=== PATIENT | female | born 1940 | race Caucasian/White ===

== ENCOUNTER 2017-12-30 09:05 | Emergency (ER) | payer OTHER ==
[~2017-12-30] VITALS: Ht 175.3 cm; Wt 78.6 kg
[2017-12-30 09:07] VITALS: Ht 175.3 cm; Wt 78.6 kg
[2017-12-30] MEDS ORDERED: COZAAR50 MG (09:09)
[2017-12-30] MEDS ORDERED: BAYER CHEWABLE81 MG PO (09:10)
[2017-12-30] MEDS ORDERED: CLARITIN 10 MG10 MG (09:10)
[2017-12-30] MEDS ORDERED: LIPITOR20 MG PO (09:10)
[2017-12-30] MEDS ORDERED: TIROSINT13 MCG PO (09:11)
[2017-12-30] MEDS ORDERED: ANTIVERT12.5 MG PO (09:59)
[2017-12-30 10:53] VITALS: BP 150/78
== END 2017-12-30 10:54 | disposition home or self-care (01) ==
LOC: D.ER 09:05
DX: H81.10 Benign paroxysmal vertigo, unspecified ear (principal); I10 Essential (primary) hypertension; F17.200 Nicotine dependence, unspecified, uncomplicated

== ENCOUNTER 2018-07-27 08:09 | Inpatient (IN) | payer OTHER ==
[~2018-07-27] VITALS: Ht 175.3 cm; Wt 73.5 kg
[2018-07-27] VITALS (10 sets, daily range): BP systolic 111–145; BP diastolic 48–67; BMI 23.9
[~2018-07-27 08:09] MED LIST: ANTIVERT12.5 MG PO; BAYER CHEWABLE81 MG PO; CLARITIN 10 MG10 MG; COZAAR50 MG; LIPITOR20 MG PO; TIROSINT13 MCG PO
[2018-07-27 08:52] LABS: HEMATOCRIT 21.9 % (36.0-48.0); HEMOGLOBIN 7.6 g/dL (12-16); MCH 31.3 pg (26.0-34.0); MCHC 34.7 g/dL (31.0-37.0); MCV 90.1 fL (80.0-100.0); MEAN PLATELET VOLUME 10.6 fL (7.4-10.4); RBC 2.43 10x6/uL (4.00-5.40); RDW 13.3 % (11.5-14.5)
[2018-07-27 08:54] LABS: INR 1.25 (0.85-1.17); PROTIME 15.1 SECONDS (11.6-15.0)
[2018-07-27 08:55] LABS: APTT 35.5 SECONDS (22.8-39.4)
[2018-07-27 08:59] LABS: ALBUMIN 2.6 g/dL (3.4-5.0); ALKALINE PHOSPHATASE 67 U/L (46-116); ALT (SGPT) 12 U/L (10-68); BILIRUBIN - TOTAL 0.39 mg/dL (0.2-1.3); CALC OSMOLALITY 268 mosm/kg (275-300); CALCIUM 8.5 mg/dL (8.5-10.1); CHLORIDE - SERUM 99 mmol/L (98-107); CREATININE - SERUM 1.5 mg/dL (0.6-1.3); POTASSIUM - SERUM 4.1 mmol/L (3.5-5.1); PROTEIN - SERUM 6.3 g/dL (6.4-8.2); SODIUM 130 mmol/L (136-145); UREA NITROGEN 33 mg/dL (7-18); eGFR NON AFRICAN AMERICAN 36 mL/min (90-120)
[2018-07-27 09:03] LABS: GLUCOSE 115 mg/dL (74-106)
[2018-07-27 09:10] LABS: CKMB 0.9 U/L (0.0-3.6); CREATINE KINASE 28 UL (21-215); TROPONIN-I 0.019 ng/mL (0.000-0.060)
--- NOTE | 2018-07-27 09:10 | NUR ---
PT REFUSED ORDERED TYLENOL. PT STATES " I CAN NOT TAKE TYLENOL WITH MY CHEMO."
--- NOTE | 2018-07-27 09:14 | NUR ---
WATER PROVIDED TO PT PER HER REQUEST. PT STATES THAT SHE "WOULD LIKE A BLANKET." PT'S TEMP AT TRIAGE 100.1 F. SHEET PROVIDED TO PT, AND PT EDUCATED ABOUT NOT RECEIVING BLANKET WHEN SHE IS FEBRILE.
[2018-07-27 09:26] LABS: PLATELET COUNT 23 10x3/uL (130-400); WBC 0.1 10x3/uL (4.8-10.8)
[2018-07-27 10:33] LABS: LYMPHOCYTES 72 % (15-50); MONOCYTES 24 % (2-11); NEUTROPHILS 4 % (40-80); PLATELET ESTIMATE DECREASED
[2018-07-27 10:34] LABS: ANISOCYTOSIS OCC; ROULEAUX OCC
[2018-07-27 10:35] LABS: APPEARANCE TURBID (CLEAR); BILIRUBIN NEGATIVE (NEGATIVE); COLOR YELLOW (YELLOW); GLUCOSE NEGATIVE (NEGATIVE); KETONE NEGATIVE (NEGATIVE); NITRITE POSITIVE (NEGATIVE); PROTEIN 1+ mg/dL (NEGATIVE); SPECIFIC GRAVITY 1.015 (1.005-1.020); UROBILINOGEN NORMAL (NORMAL)
[2018-07-27 10:37] LABS: AMORPHOUS SEDIMENT <1+ /lpf (NONE SEEN); BACTERIA MANY /hpf (NONE SEEN); EPITHELIAL CELLS OCC /hpf (0-5); GRANULAR CAST OCC /lpf (NONE SEEN); MUCUS <1+ /lpf (NONE SEEN); WHITE CELLS - URINE OCC /hpf (0-5)
--- NOTE | 2018-07-27 11:00 | NUR ---
PT TEMPERATURE 98.6 F ORALLY, BLANKET PROVIDED FOR COMFORT.
--- NOTE | 2018-07-27 11:59 | NUR ---
PT RETURNED TO ED AT THIS TIME VIA STRETCHER FOLLOWING ORDERED CT SCAN. NO SIGNS OF DISTRESS NOTED UPON RETURN.
--- NOTE | 2018-07-27 12:55 | NUR ---
PT OBSERVED LYING IN BED WITH EYES CLOSED, BREATHS EVEN AND UNLABORED. WILL CONTINUE TO MONITOR.
--- NOTE | 2018-07-27 17:34 | NUR ---
PT ARRIVED TO UNIT VIA STRETCHER ACCOMPANIED BY HOSPITAL STAFF. PT ORIENTED TO ROOM. ASSESSMENTS COMPLETE. PT DENIES NEEDS. WCTM.
--- NOTE | 2018-07-27 17:40 | MORECARE ---
CASE MANAGEMENT DISCHARGE SUMMARY PATIENT: BELA HOLDER UNIT: [id number] ADM DATE: 07/27/18 AGE: 78 : 41 SEX: F ROOM/BED: D.1211 AUTHOR: JOAN SPAULDING PHYSICIAN: REFERRING PHYSICIAN: TERRI MAYS MD DATE OF SERVICE: 07/27/18 Discharge Plan Patient Name: BELA HOLDER [facility] [facility] 1940 Planned Disposition: Home Anticipated Discharge Date: Discharge Date: Expected LOS: Initial Reviewer: [email or web address] Initial Review Date: 07/27/2018 Generated: 07/27/18 6:39 pm Patient Name: BELA HOLDER Page [id number] at 1740 All edits/amendments must be made on the electronic document DICTATION DATE: 07/27/181738 PATIENT APPOINTMENT COORDINATOR: DELBERT 07/27/181738 RPT#: [id number] DC DATE: STATUS: ADM IN [facility] [address] [place] [address] END OF REPORT
--- NOTE | 2018-07-27 17:46 | MORECARE ---
CASE MANAGEMENT DISCHARGE SUMMARY PATIENT: BELA HOLDER UNIT: [id number] ADM DATE: 07/27/18 AGE: 78 : 41 SEX: F ROOM/BED: D.1211 AUTHOR: JASSON,DOC PHYSICIAN: REFERRING PHYSICIAN: TERRI MAYS MD DATE OF SERVICE: 07/27/18 Discharge Plan Patient Name: BELA HOLDER Facility: [facility]:[place] : 1940 Planned Disposition: Home Anticipated Discharge Date: Discharge Date: Expected LOS: Initial Reviewer: [email or web address] Initial Review Date: 07/27/2018 Generated: 07/27/18 6:46 pm DCP- Discharge Planning Updated by [email or web address]: Julienne Hodge on 07/27/18 4:[address] Patient Name: BELA HOLDER Admission Status: ER Accout number: [id number] Admission Date: 07-27-2018 : 1940 Admission Diagnosis: Attending: TERRI MAYS Current LOS: 1 Anticipated DC Date: Planned Disposition: Home Primary Insurance: [employer] Discharge Planning Comments: CM met with patient to complete initial dc planning assessment. CM educated patient on the CM role and verbal consent given by patient to complete assessment. CM verified patient's address, phone number, and emergency contact phone numbers. Patient lives at home alone and reports she is independent in her care at home. At discharge patient plans to return home alone and feels this is a safe discharge. CM discussed availability of home health, rehab services, and medical equipment. Patient reports she has a lady that comes once a month to help her with house work. Patient denied known discharge needs at this time. She is currently on chemo every 2 weeks and has 4 treatments left. Patient reports one of her friends will transport her home at time of discharge. CM will continue to follow and will assist as needed with dc plans/needs. Splitting Machine Operator: Julienne Hodge RN, [facility] DCPIA - Discharge Planning Initial Assessment Updated by [email or web address]: Julienne Hodge on 07/27/18 5:43 pm * Is the patient Alert and Oriented? Yes * How many steps to enter\exit or inside your home? * PCP Dr. Hernandez @ [facility] - oncology * Pharmacy [facility] by the [facility] * Preadmission Environment Home Alone * ADLs Independent * Equipment None * List name and contact numbers for known caregivers / representatives who currently or will assist patient after discharge: Carol Ann Ng - friend - [phone] Denice Gudino - neighbor/friend - [phone] * Verbal permission to speak to the caregivers and representatives has been obtained from the patient. Yes * Community resources currently utilized None * Additional services required to return to the preadmission environment? No * Can the patient safely return to the preadmission environment? Yes * Has this patient been hospitalized within the prior 30 days at any hospital? No Last DP export: 07/27/18 4:40 p Patient Name: BELA HOLDER Page [id number] at 1746 All edits/amendments must be made on the electronic document DICTATION DATE: 07/27/181745 CHART WRITER: DELBERT 07/27/181745 RPT#: [id number] DC DATE: STATUS: ADM IN [facility] [address] [place] [address] END OF REPORT
--- NOTE | 2018-07-27 19:24 | NUR ---
PT IN BED. DENIES NEEDS AT THIS TIME.
[2018-07-28 01:15] VITALS: BP 90/33
[2018-07-28 06:22] VITALS: BP 103/68
[2018-07-28 07:11] LABS: ANION GAP 19.1 mmol/L (8-16); CALCIUM 8.5 mg/dL (8.5-10.1); CARBON DIOXIDE 16.5 mmol/L (21.0-32.0); MAGNESIUM - SERUM 1.5 mg/dL (1.8-2.4); PHOSPHOROUS 5.2 mg/dL (2.5-4.9); POTASSIUM - SERUM 3.6 mmol/L (3.5-5.1)
[2018-07-28 07:15] LABS: CREATININE - SERUM 1.9 mg/dL (0.6-1.3)
[2018-07-28 07:30] LABS: BASOPHILS 5.9 % (0-2); EOSINOPHILS 0 % (0-7); LYMPHOCYTES 17.6 % (15-50); MCH 30.9 pg (26.0-34.0); MCHC 34.5 g/dL (31.0-37.0); MCV 89.5 fL (80.0-100.0); MEAN PLATELET VOLUME 11.5 fL (7.4-10.4); MONOCYTES 58.8 % (2-11); NEUTROPHILS 17.7 % (40-80); RDW 13.4 % (11.5-14.5)
[2018-07-28 07:34] LABS: WBC 0.2 10x3/uL (4.8-10.8)
[2018-07-28 07:35] LABS: HEMATOCRIT 19.7 % (36.0-48.0); HEMOGLOBIN 6.8 g/dL (12-16); PLATELET COUNT 16 10x3/uL (130-400)
[2018-07-28 08:30] VITALS: BP 91/47
--- NOTE | 2018-07-28 10:07 | NUR ---
THE PATIENT WAS LYING IN BED WHEN STAFF ENTERED HER ROOM. PATIENT REMAINS ON REVERSE PRECAUTIONS. BED IS IN THE LOW POSITION WITH SIDERAILS X2 AND CALL LIGHT WITHIN REACH. THE PATIENT WAS EDUCATED ON AND DEMONSTRATES USE OF A CALL LIGHT. CRITICAL LABS REPORTED TO DR. FELTON. THE PATIENT APPEARS COMFORTABLE WITH NO QUESTIONS OR COCNERNS AT THIS TIME.
[2018-07-28 11:18] VITALS: BP 117/59
[2018-07-28 11:59] VITALS: BMI 23.9
[2018-07-28 15:53] VITALS: BP 109/91
[2018-07-28 16:15] VITALS: Ht 175.3 cm; Wt 73.5 kg
--- NOTE | 2018-07-28 19:59 | NUR ---
GREETED PATIENT AND INTRODUCED MYSELF HER NURSE. ASSISTED PATIENT TO BATHROOM AND CLEANED UP INCONTINENT BM. COMPLETE LINEN CHANGE. CALL LIGHT IN REACH.
[2018-07-28 20:21] VITALS: BP 109/50
--- NOTE | 2018-07-28 23:30 | NUR ---
PATIENT ASSISTED TO BATHROOM. PATIENT CLEANED OF INCONTINENT BM. COMPLETE LINEN CHANGE. PATIENT BACK TO BED AND REPOSITIONED FOR COMFORT. CALL LIGHT IN REACH.
--- NOTE | 2018-07-28 23:41 | NUR ---
OFFGOING NURSE HAD REPORTED THAT PATIENT WOULD NEED TO HAVE 2 BAGS OF MAGNESIUM INFUSED. MAGNESIUM WAS D/C BY DOCTOR @ 8941 PRIOR TO SHIFT. TIER AND DETONATOR CONTACTED FOR FURTHER INSTRUCTION.
[2018-07-29 00:45] VITALS: BP 126/54
[2018-07-29 04:00] VITALS: BP 133/52
[2018-07-29 07:40] VITALS: BP 91/53
--- NOTE | 2018-07-29 08:20 | NUR ---
ASSESSMENT COMPLETE. IV TO L HAND PATENT.NEUTROPENIC ISOLATION PRECAUTIONS IN PLACE. RASH NOTED TO BILAT ARMS AND LEGS. DENIES ANY NEEDS AT THIS TIME.
[2018-07-29 09:09] LABS: ALBUMIN 2.3 g/dL (3.4-5.0); ANION GAP 17.2 mmol/L (8-16); BILIRUBIN - TOTAL 0.49 mg/dL (0.2-1.3); CALCIUM 8.9 mg/dL (8.5-10.1); CARBON DIOXIDE 16.6 mmol/L (21.0-32.0); CREATININE - SERUM 1.7 mg/dL (0.6-1.3)
[2018-07-29 09:10] LABS: POTASSIUM - SERUM 2.8 mmol/L (3.5-5.1)
[2018-07-29 09:16] LABS: MCH 31.4 pg (26.0-34.0); MCHC 36.4 g/dL (31.0-37.0); RDW 14.1 % (11.5-14.5)
[2018-07-29 09:33] LABS: HEMATOCRIT 29.1 % (36.0-48.0); HEMOGLOBIN 10.6 g/dL (12-16); MCV 86.1 fL (80.0-100.0); PLATELET COUNT 20 10x3/uL (130-400); RBC 3.38 10x6/uL (4.00-5.40); WBC 1.1 10x3/uL (4.8-10.8)
--- NOTE | 2018-07-29 09:54 | NUR ---
SPOKE WITH DR MAYS REGARDING POTASSIUM LEVEL OF 2.8. ORDERS RECIEVED FOR DAILY POTASSIUM PO AND ELETROLYTE PROTOCOL.
[2018-07-29 10:05] LABS: LYMPHOCYTES 12 % (15-50); MONOCYTES 10 % (2-11); NEUTROPHILS 66 % (40-80); PLATELET ESTIMATE DECREASED; PLATELET MORPHOLOGY GIANT PLTS PRESENT
[2018-07-29 16:00] VITALS: BP 101/50
--- NOTE | 2018-07-29 17:00 | NUR ---
VISITING WITH FRIEND. DENIES ANY NEEDS AT THIS TIME. CALL LIGHT WITHIN REACH.
[2018-07-29 19:42] VITALS: BP 92/46
--- NOTE | 2018-07-29 19:47 | NUR ---
PT LYING IN BED WATCHING TV. CALL LIGHT IN REACH. RESP EVEN AND UNLABORED. PT DENIES NEEDS OR PAIN AT THIS TIME. BED IN LOW. ASSESSMENT COMPLETED AT THIS TIME. LEFT HAND IV INTACT. WILL CONTINUE TO MONITOR.
--- NOTE | 2018-07-29 23:55 | NUR ---
PT PRESSED CALL LIGHT. THIS NURSE WITNESSED PT WALKING TO AND FROM BATHROOM FOR SAFETY. DENIES FURTHER NEEDS. CL IN REACH. WCTM
[2018-07-30] VITALS: BP 91/47
--- NOTE | 2018-07-30 01:40 | NUR ---
I have reviewed this patient and I concur with the Shift Assessment completed by the Licensed Practical Nurse today this shift.
[2018-07-30 04:35] VITALS: BP 96/53
[2018-07-30 06:13] LABS: BASOPHILS 0.5 % (0-2); EOSINOPHILS 0 % (0-7); HEMATOCRIT 25.8 % (36.0-48.0); HEMOGLOBIN 9.3 g/dL (12-16); IMMATURE GRANULOCYTES 1.9 % (0-5); LYMPHOCYTES 11.2 % (15-50); MCH 31.3 pg (26.0-34.0); MCV 86.9 fL (80.0-100.0); MEAN PLATELET VOLUME 10.8 fL (7.4-10.4); MONOCYTES 13.6 % (2-11); NEUTROPHILS 72.8 % (40-80); RBC 2.97 10x6/uL (4.00-5.40); RDW 14.3 % (11.5-14.5)
[2018-07-30 06:20] LABS: ANION GAP 14.9 mmol/L (8-16); CALCIUM 8.4 mg/dL (8.5-10.1); CARBON DIOXIDE 15.4 mmol/L (21.0-32.0); CREATININE - SERUM 1.4 mg/dL (0.6-1.3); POTASSIUM - SERUM 3.3 mmol/L (3.5-5.1)
[2018-07-30 06:32] LABS: WBC 2.1 10x3/uL (4.8-10.8)
[2018-07-30 06:33] LABS: PLATELET COUNT 22 10x3/uL (130-400)
[2018-07-30 07:00] VITALS: BP 109/59
--- NOTE | 2018-07-30 08:52 | NUR ---
UP IN BED AWAKE AT THIS TIME. NO ACUTE DISTRESS NOTED. WILL CONTINUE PLAN OF CARE.
--- NOTE | 2018-07-30 10:29 | NUR ---
UP IN BED WATCHING TV AT THIS TIME. NO ACUTE DISTRESS NOTED. VSS. CALL LIGHT IN REACH. WILL CONTINUE PLAN OF CARE.
--- NOTE | 2018-07-30 12:53 | NUR ---
UP IN BED EATING LUNCH AT THIS TIME. NO ACUTE DISTRESS NOTED. WILL CONTINUE PLAN OF CARE.
[2018-07-30 20:00] VITALS: BP 117/61
--- NOTE | 2018-07-30 20:49 | NUR ---
PT IN BED. PROVIDED ICE WATER PER REQUEST. DENIES FURTHER NEEDS AT THIS TIME.
[2018-07-31 00:49] VITALS: BP 115/85
--- NOTE | 2018-07-31 00:53 | NUR ---
REST QUIELTY IN BED. RESP EVEN, NO S/S OF DISTRESS. CALL LIGHT IN REACH.
--- NOTE | 2018-07-31 04:08 | NUR ---
REST IN BED, CALL LIGHT IN REACH.
[2018-07-31 09:25] LABS: HEMATOCRIT 27.5 % (36.0-48.0); HEMOGLOBIN 9.6 g/dL (12-16); MCH 31.1 pg (26.0-34.0); MCHC 34.9 g/dL (31.0-37.0); RBC 3.09 10x6/uL (4.00-5.40); RDW 14.9 % (11.5-14.5); WBC 4.9 10x3/uL (4.8-10.8)
[2018-07-31 09:26] LABS: PLATELET COUNT 33 10x3/uL (130-400)
[2018-07-31 09:32] LABS: ANION GAP 16.2 mmol/L (8-16); CALCIUM 8.5 mg/dL (8.5-10.1); CARBON DIOXIDE 16.4 mmol/L (21.0-32.0); CREATININE - SERUM 1.2 mg/dL (0.6-1.3); POTASSIUM - SERUM 3.6 mmol/L (3.5-5.1)
[2018-07-31 11:55] LABS: EOSINOPHILS 1 % (0-7); LYMPHOCYTES 8 % (15-50); MONOCYTES 13 % (2-11); NEUTROPHILS 72 % (40-80); PLATELET ESTIMATE DECREASED; ROULEAUX 1+
[2018-07-31 12:58] VITALS: BP 144/60; BP 204/86
--- NOTE | 2018-07-31 14:44 | NUR ---
Nutrition follow up Pt is on a regular diet with poor po intake Pt reports she is nauseated and not able to eat much Discussed the importance of nutrition Pt drinks Boost. Encouraged [address] following
--- NOTE | 2018-07-31 18:00 | NUR ---
PT RESTING IN BED WITH EYES OPEN CALL LIGHT IN REACH NO PROBLEMS WILL MONITER
[2018-07-31 18:37] VITALS: BP 156/86
[2018-07-31 22:14] VITALS: BP 110/50
--- NOTE | 2018-07-31 23:30 | NUR ---
RESUMING PT CARE, PT IS LAYING IN BED WITH EYES CLOSED, RESPIRATIONS EVEN AND UNLABORED. CALL LIGHT IS IN REACH, WILL CONTINUE TO MONITOR AND FOLLOW PLAN OF CARE.
[2018-08-01 00:54] VITALS: BP 110/48
[2018-08-01 05:25] VITALS: BP 102/51
[2018-08-01 08:00] VITALS: BP 127/67
--- NOTE | 2018-08-01 08:31 | NUR ---
ALERT AND ORIENTED. ASSISTED TO BED. CL IN REACH. NO DISTRESS NOTED.
[2018-08-01 10:59] LABS: BASOPHILS 0.2 % (0-2); EOSINOPHILS 0 % (0-7); HEMATOCRIT 29.3 % (36.0-48.0); HEMOGLOBIN 10.3 g/dL (12-16); IMMATURE GRANULOCYTES 7.2 % (0-5); LYMPHOCYTES 4.2 % (15-50); MCH 31.8 pg (26.0-34.0); MCHC 35.2 g/dL (31.0-37.0); MCV 90.4 fL (80.0-100.0); MEAN PLATELET VOLUME 9.8 fL (7.4-10.4); MONOCYTES 15.5 % (2-11); NEUTROPHILS 72.9 % (40-80); RBC 3.24 10x6/uL (4.00-5.40); RDW 15.1 % (11.5-14.5)
[2018-08-01 11:07] LABS: WBC 12.8 10x3/uL (4.8-10.8)
[2018-08-01 11:10] LABS: PLATELET COUNT 46 10x3/uL (130-400)
[2018-08-01 11:13] LABS: CALCIUM 8.9 mg/dL (8.5-10.1); CARBON DIOXIDE 16.8 mmol/L (21.0-32.0); CREATININE - SERUM 1.2 mg/dL (0.6-1.3); POTASSIUM - SERUM 3.8 mmol/L (3.5-5.1)
--- NOTE | 2018-08-01 12:14 | NUR ---
CALLED DR BENNETT'S NUMBER AND LEFT CALL BACK NUMBER. PATIENT IV SITE LEAKING. PATIENT WANTS HER PORT ACCESSED AND WANTS LIDOCAINE TO SITE BEFORE IT IS ACCESSED.
[2018-08-01 12:31] VITALS: BP 114/53
--- NOTE | 2018-08-01 17:25 | NUR ---
REPORT RECIEVED AND ROUNDING COMPLETE. PT SITTING UP IN BED, A&O X4, PT IS TALKING ON HER CELL PHONE. PT HAS NS RUNNING THROUGH [employer]. PT STATES SHE HAS NO NEEDS AT THIS TIME CALL LIGHT WITHIN REACH AND BED IN LOWEST POSITION.
--- NOTE | 2018-08-01 17:51 | NUR ---
HAD VISITOR TODAY. NO CHANGE IN ASSESSMENT. CL IN REACH. ACCESSED L INFUSA PORT WITH 1IN. BOURNE NEEDLE USING STERILE PROCEDURE. EXCELLENT BLOOD RETURN.
[2018-08-01 18:25] VITALS: BP 132/68
--- NOTE | 2018-08-01 19:30 | NUR ---
REPORT RECIEVED AND ROUNDING COMPLETE. PT WAS ON THE PHONE NO S/SX OD DISTRESS STATES NO NEEDS AT THIS TIME CALL LIGHT WITHIN REACH ANS BED IN LOWEST POSITION.
[2018-08-01 20:00] VITALS: BP 105/60
[2018-08-02] VITALS: BP 94/53
--- NOTE | 2018-08-02 00:33 | NUR ---
I have reviewed this patient and I concur with the Shift Assessment completed by the Licensed Practical Nurse today this shift.
--- NOTE | 2018-08-02 01:21 | NUR ---
PT LAYING IN BED EYES CLOSED BREATHING EVEN AND UNLABORED. PT HAS NO SSX OF DISTRESS. CALL LIGHT WITHIN REACH AND BED INLOWEST POSITION
[2018-08-02 04:00] VITALS: BP 114/54
[2018-08-02 07:52] LABS: HEMATOCRIT 26.5 % (36.0-48.0); HEMOGLOBIN 9.3 g/dL (12-16); MCH 31.4 pg (26.0-34.0); MCHC 35.1 g/dL (31.0-37.0); MCV 89.5 fL (80.0-100.0); MEAN PLATELET VOLUME 10.8 fL (7.4-10.4); PLATELET COUNT 66 10x3/uL (130-400); RBC 2.96 10x6/uL (4.00-5.40); RDW 15.1 % (11.5-14.5); WBC 21.2 10x3/uL (4.8-10.8)
[2018-08-02 08:00] LABS: ALBUMIN 2.3 g/dL (3.4-5.0); ANION GAP 17.6 mmol/L (8-16); BILIRUBIN - TOTAL 0.2 mg/dL (0.2-1.3); CALCIUM 8.4 mg/dL (8.5-10.1); CARBON DIOXIDE 15.3 mmol/L (21.0-32.0); CREATININE - SERUM 1.1 mg/dL (0.6-1.3); POTASSIUM - SERUM 3.9 mmol/L (3.5-5.1)
[2018-08-02 08:30] VITALS: BP 134/76
[2018-08-02 09:41] LABS: LYMPHOCYTES 4 % (15-50); MONOCYTES 7 % (2-11); NEUTROPHILS 61 % (40-80); PLATELET ESTIMATE DECREASED
[2018-08-02 10:08] LABS: APPEARANCE CLEAR (CLEAR); BILIRUBIN NEGATIVE (NEGATIVE); COLOR YELLOW (YELLOW); GLUCOSE NEGATIVE (NEGATIVE); KETONE NEGATIVE (NEGATIVE); NITRITE NEGATIVE (NEGATIVE); PROTEIN NEGATIVE (NEGATIVE); UROBILINOGEN NORMAL (NORMAL)
[2018-08-02 12:18] VITALS: BP 119/78
[2018-08-02 20:00] VITALS: BP 113/47
--- NOTE | 2018-08-02 20:01 | NUR ---
RESTING IN BED AND WATCHING TV. CALL LIGHT IN REACH.
[2018-08-03] VITALS (7 sets, daily range): BP systolic 99–120; BP diastolic 44–69
--- NOTE | 2018-08-03 04:08 | NUR ---
REST QUIELTY IN BED. CALL LIGHT IN REACH.
--- NOTE | 2018-08-03 07:57 | NUR ---
THE PATIENT WAS LYING IN BED AND WATCHING TELEVISION WHEN STAFF ENTERED HER ROOM. BED IS IN THE LOW POSITION WITH SIDERAILS X2 AND CALL LIGHT WITHIN REACH. THE PATIENT DEMONSTRATES APPROPRIATE USE OF A CALL LIGHT. THE PATIENT APPEARS COMFORTABLE WITH NO QUESTIONS OR CONCERNS AT THIS TIME.
[2018-08-03 09:49] LABS: ANION GAP 13.8 mmol/L (8-16); CALCIUM 8.4 mg/dL (8.5-10.1); CARBON DIOXIDE 19.1 mmol/L (21.0-32.0); POTASSIUM - SERUM 3.9 mmol/L (3.5-5.1)
[2018-08-03 10:00] LABS: BASOPHILS 0.2 % (0-2); EOSINOPHILS 0 % (0-7); HEMATOCRIT 28.5 % (36.0-48.0); HEMOGLOBIN 9.8 g/dL (12-16); IMMATURE GRANULOCYTES 7.5 % (0-5); LYMPHOCYTES 3.2 % (15-50); MCH 31.1 pg (26.0-34.0); MCHC 34.4 g/dL (31.0-37.0); MCV 90.5 fL (80.0-100.0); MEAN PLATELET VOLUME 10.5 fL (7.4-10.4); MONOCYTES 16.9 % (2-11); NEUTROPHILS 72.2 % (40-80); RBC 3.15 10x6/uL (4.00-5.40); RDW 15.3 % (11.5-14.5)
[2018-08-03 10:06] LABS: PLATELET COUNT 96 10x3/uL (130-400); WBC 12.2 10x3/uL (4.8-10.8)
[2018-08-03 10:07] LABS: ALBUMIN 2.5 g/dL (3.4-5.0); BILIRUBIN - TOTAL 0.17 mg/dL (0.2-1.3); PROTEIN - SERUM 5.4 g/dL (6.4-8.2)
--- NOTE | 2018-08-03 19:45 | NUR ---
LYING IN BED. ALERT AND ORIENTED X4. RESP EVEN AND NONLABORED. DENIES PAIN. NS @ 100 MLHR INFUSING IN LT CW MEDIPORT WITHOUT DIFF. RED RAISED RASH NOTED TO BUE AND BLE. AMBULATORY. NO DISTRESS. SR ELEVATED X2. CL IN REACH.
[2018-08-04 00:15] VITALS: BP 95/72
--- NOTE | 2018-08-04 02:05 | NUR ---
HAS SLEPT WELL SO FAR THIS SHIFT. UP TO BR TO VOID AT THIS TIME. DENIES NEEDS. CL IN REACH.
[2018-08-04 04:28] VITALS: BP 104/62
--- NOTE | 2018-08-04 07:51 | NUR ---
THE PATIENT WAS WATCHING TELEVISION WHEN STAFF ENTERED HER ROOM. BED IS IN THE LOW POSITION WITH SIDERAILS X2 AND CALL LIGHT WITHIN REACH. THE PATIENT WAS EDUCATED ON THE NEED TO CALL FOR ASSISTANCE WITH ANY ADLS THAT REQUIRE HER TO GET OUT OF BED AND DEMONSTRATES UNDERSTANDING VIA TEACHBACK METHOD. THE PATIENT APPEARS COMFORTABLE WITH NO QUSTIONS OR CONCERNS AT THIS TIME.
[2018-08-04 08:02] VITALS: BP 101/53
[2018-08-04 10:16] LABS: HEMATOCRIT 28.8 % (36.0-48.0); HEMOGLOBIN 9.9 g/dL (12-16); MCH 31.4 pg (26.0-34.0); MCHC 34.4 g/dL (31.0-37.0); MCV 91.4 fL (80.0-100.0); MEAN PLATELET VOLUME 10.5 fL (7.4-10.4); RBC 3.15 10x6/uL (4.00-5.40); RDW 15.4 % (11.5-14.5)
[2018-08-04 10:17] LABS: PLATELET COUNT 127 10x3/uL (130-400); WBC 8.1 10x3/uL (4.8-10.8)
[2018-08-04 10:20] LABS: ANION GAP 13.8 mmol/L (8-16); CALCIUM 8.5 mg/dL (8.5-10.1); CARBON DIOXIDE 20.1 mmol/L (21.0-32.0); CREATININE - SERUM 1.1 mg/dL (0.6-1.3); POTASSIUM - SERUM 3.9 mmol/L (3.5-5.1)
[2018-08-04 10:52] LABS: LYMPHOCYTES 12 % (15-50); MONOCYTES 9 % (2-11); NEUTROPHILS 65 % (40-80); PLATELET ESTIMATE NORMAL
[2018-08-04 10:53] LABS: PLATELET MORPHOLOGY PLT CLUMPS PRESENT
[2018-08-04 13:26] VITALS: BP 94/50
[2018-08-04 16:00] VITALS: BP 105/55
[2018-08-04 20:00] VITALS: BP 126/69
--- NOTE | 2018-08-04 20:19 | NUR ---
PATIENT RESTING IN BED WITH NO S/S OF DISTRESS. BROUGHT PATIENT ICE PER HER REQUEST. PATIENT DENIES OTHER NEEDS AT THIS TIME. BED IN LOWEST POSITION AND CALL LIGHT WITHIN REACH. ENCOURAGED THE PATIENT TO CALL IF SHE HAS NEEDS. WILL CONTINUE TO MONITOR.
[2018-08-05 00:30] VITALS: BP 126/64
[2018-08-05 02:56] LABS: BASOPHILS 0.4 % (0-2); EOSINOPHILS 0 % (0-7); HEMATOCRIT 28.6 % (36.0-48.0); HEMOGLOBIN 9.6 g/dL (12-16); IMMATURE GRANULOCYTES 10.8 % (0-5); LYMPHOCYTES 10.5 % (15-50); MCHC 33.6 g/dL (31.0-37.0); MCV 92.3 fL (80.0-100.0); MEAN PLATELET VOLUME 10.3 fL (7.4-10.4); MONOCYTES 22.5 % (2-11); NEUTROPHILS 55.8 % (40-80); PLATELET COUNT 127 10x3/uL (130-400); RDW 15.2 % (11.5-14.5); WBC 6.7 10x3/uL (4.8-10.8)
[2018-08-05 07:25] VITALS: BP 114/62
[2018-08-05 11:05] VITALS: BP 119/68
--- NOTE | 2018-08-05 13:37 | NUR ---
IV THERAPY DC'ED FROM [facility] VIA PROTOCOL. UNDERSTOOD DISCHARGE INSTRUCTIONS.
[2018-08-05] MEDS ORDERED: SYNTHROID50 MCG PO (15:03)
[2018-08-05] MEDS ORDERED: LIPITOR20 MG PO (15:03)
[2018-08-05] MEDS ORDERED: K-DUR20 MEQ (15:04)
--- NOTE | 2018-08-05 16:48 | MORECARE ---
CASE MANAGEMENT DISCHARGE SUMMARY PATIENT: BELA HOLDER UNIT: [id number] ADM DATE: 07/27/18 AGE: 78 : 41 SEX: F ROOM/BED: D.1211 AUTHOR: JASSON,DOC PHYSICIAN: REFERRING PHYSICIAN: TERRI MAYS MD DATE OF SERVICE: 08/05/18 Discharge Plan Patient Name: BELA HOLDER Facility: [facility]:[place] : 1940 Planned Disposition: Home Anticipated Discharge Date: Discharge Date: 08/05/2018 Expected LOS: Initial Reviewer: [email or web address] Initial Review Date: 07/27/2018 Generated: 08/05/18 5:48 pm DCP- Discharge Planning Updated by [email or web address]: Julienne Hodge on 07/27/18 4:[address] Patient Name: BELA HOLDER Admission Status: ER Accout number: [id number] Admission Date: 07-27-2018 : 1940 Admission Diagnosis: Attending: TERRI MAYS Current LOS: 1 Anticipated DC Date: Planned Disposition: Home Primary Insurance: [employer] Discharge Planning Comments: CM met with patient to complete initial dc planning assessment. CM educated patient on the CM role and verbal consent given by patient to complete assessment. CM verified patient's address, phone number, and emergency contact phone numbers. Patient lives at home alone and reports she is independent in her care at home. At discharge patient plans to return home alone and feels this is a safe discharge. CM discussed availability of home health, rehab services, and medical equipment. Patient reports she has a lady that comes once a month to help her with house work. Patient denied known discharge needs at this time. She is currently on chemo every 2 weeks and has 4 treatments left. Patient reports one of her friends will transport her home at time of discharge. CM will continue to follow and will assist as needed with dc plans/needs. Oil Extractor: Julienne Hodge RN, [facility] DCPIA - Discharge Planning Initial Assessment Updated by [email or web address]: Julienne Hodge on 07/27/18 5:43 pm * Is the patient Alert and Oriented? Yes * How many steps to enter\exit or inside your home? * PCP Dr. Hernandez @ [facility] [[email or web address] - oncology * Pharmacy [facility] by the [facility] * Preadmission Environment Home Alone * ADLs Independent * Equipment None * List name and contact numbers for known caregivers / representatives who currently or will assist patient after discharge: Carol Ann Ng - friend - [phone] Denice Gudino - neighbor/friend - [phone] * Verbal permission to speak to the caregivers and representatives has been obtained from the patient. Yes * Community resources currently utilized None * Additional services required to return to the preadmission environment? No * Can the patient safely return to the preadmission environment? Yes * Has this patient been hospitalized within the prior 30 days at any hospital? No Coverage Notice Reviewer: [email or web address] - Latasha Posada Notice Issued Date-Time: 08/03/2018 16:00 Notice Type: IM Discharge Notice Notice Delivered To: Patient Relationship to Patient: Body And Fender Mechanic Name: Delivery Method: HAND - Hand Delivered Mary Days: Prior Verbal Notification: Recipient Understood Notice: Yes Recipient Signature: Yes Med Rec Note Co-signed by Attending: Coverage Notice Comment: Last DP export: 07/27/18 4:46 p Patient Name: BELA HOLDER Page [id number] at 1648 All edits/amendments must be made on the electronic document DICTATION DATE: 08/05/181646 CARPENTRY TEACHER: DELBERT 08/05/181646 RPT#: [id number] DC DATE:08/05/18 STATUS: DIS IN [facility] [address] [place] [address] END OF REPORT
== END 2018-08-05 15:55 | disposition home or self-care (01) | DRG 871 ==
LOC: D.ER 08:09 → D.M3 14:49
PROVIDERS: Family Medicine; Internal Medicine Hematology & Oncology; ADMIT Family Medicine; ATTEND Family Medicine
DX: A41.9 Sepsis, unspecified organism (principal); D61.810 Antineoplastic chemotherapy induced pancytopenia; K57.32 Diverticulitis of large intestine without perforation or abscess without bleeding; D61.818 Other pancytopenia; N39.0 Urinary tract infection, site not specified; T45.1X5A Adverse effect of antineoplastic and immunosuppressive drugs, initial encounter; J44.9 Chronic obstructive pulmonary disease, unspecified; E03.9 Hypothyroidism, unspecified; E78.5 Hyperlipidemia, unspecified; B96.20 Unspecified Escherichia coli [E. coli] as the cause of diseases classified elsewhere; E87.6 Hypokalemia